=== PATIENT | female | born 1980 | race Caucasian/White ===

== ENCOUNTER 2017-03-29 23:54 | Emergency (ER) | payer OTHER ==
[~2017-03-29] VITALS: Ht 157.5 cm; Wt 57.4 kg
[2017-03-29 23:54] VITALS: BP 120/80
[~2017-03-29 23:54] MED LIST: HYDR-3240 PO; IBUP-1222 PO; PREN1TAB27 PO
== END 2017-03-30 00:36 | disposition home or self-care (01) ==
LOC: ED 23:59
DX: T15.12XA Foreign body in conjunctival sac, left eye, initial encounter (principal); X58.XXXA Exposure to other specified factors, initial encounter; Y93.89 Activity, other specified; Y99.8 Other external cause status; Y92.009 Unspecified place in unspecified non-institutional (private) residence as the place of occurrence of the external cause
CPT/HCPCS: 99284